=== PATIENT | female | born 1945 | race Caucasian/White ===

== ENCOUNTER 2017-12-10 11:28 | Emergency (ER) | payer OTHER ==
[2017-12-10 11:48] VITALS: BP 135/78; PULSE 75; TEMP 98.2; BMI 24.9
--- NOTE | 2017-12-10 12:11 | PDOC ---
History of Present Illness - General Chief Complaint: Pain, Acute Stated Complaint: ABD PAIN&DIARRHEA Time Seen by Provider: 12/10/17 12:11 - History of Present Illness Initial Comments: 12/10/17 12:32 Ms. Gunderson is a 72 yo female w/ pmh of HTN, HLD, GERD, and Hypothyroidism who presents for evalution of 4 day history of gas and diarrhea. She reports this started while on a plane here from [place] and that she has had intermittent symptoms over this time period. Ms. Gunderson has been using loperamide and pedialyte for symptomatic relief without much change in symptoms. The patient denies chest pain, shortness of breath, headache and dizziness. Denies fever, chills, nausea, vomit, and constipation. Denies dysuria, frequency , urgency and hematuria. Allergies: NKDA Past History - Past Medical History Allergies/Adverse Reactions: Allergies Allergy/AdvReac Type Severity Reaction Status Date / Time No Known Allergies Allergy Verified 12/10/17 11:39 Home Medications: Ambulatory Orders Ciprofloxacin HCl [Cipro] 500 mg PO BID #14 tablet 12/10/17 metroNIDAZOLE [Flagyl -] 500 mg PO TID #21 tablet 12/10/17 COPD: No Diabetes: (PRE DIABETIC) HTN: Yes Hypercholesterolemia: Yes Psychiatric Problems: Yes (DEPRESSION) Thyroid Disease: Yes (HYPO) - Surgical History Appendectomy: Yes Cardiac Surgery: Yes (CARDIAC CATH) - Suicide/Smoking/Psychosocial Hx Smoking History: Never smoked Review of Systems - Review of Systems Comments:: 12/10/17 15:06 GENERAL/CONSTITUTIONAL: No fever or chills. No weakness. HEAD, EYES, EARS, NOSE AND THROAT: No change in vision. No ear pain or discharge. No sore throat. CARDIOVASCULAR: No chest pain or shortness of breath RESPIRATORY: No cough, wheezing, or hemoptysis. GASTROINTESTINAL: +Diarrhea as described. No nausea, vomiting, or constipation. GENITOURINARY: No dysuria, frequency, or change in urination. MUSCULOSKELETAL: No joint or muscle swelling or pain. No neck or back pain. SKIN: No rash NEUROLOGIC: No headache, vertigo, loss of consciousness, or change in strength/ sensation. ENDOCRINE: No increased thirst. No abnormal weight change HEMATOLOGIC/LYMPHATIC: No anemia, easy bleeding, or history of blood clots. ALLERGIC/IMMUNOLOGIC: No hives or skin allergy. *Physical Exam - Vital Signs Last Vital Signs Temp Pulse Resp BP Pulse Ox 98.2 F 75 19 135/78 100 12/10/17 11:39 12/10/17 11:39 12/10/17 11:39 12/10/17 11:39 12/10/17 11:39 - Physical Exam Comments: 12/10/17 15:06 GENERAL: Awake, alert, and fully oriented, in no acute distress HEAD: No signs of trauma, normocephalic, atraumatic EYES: PERRLA, EOMI, sclera anicteric, conjunctiva clear ENT: Auricles normal inspection, hearing grossly normal, nares patent, oropharynx clear without exudates. Moist mucosa NECK: Normal ROM, supple, no lymphadenopathy, JVD, or masses LUNGS: No distress, speaks full sentences, clear to auscultation bilaterally HEART: Regular rate and rhythm, normal S1 and S2, no murmurs, rubs or gallops, peripheral pulses normal and equal bilaterally. ABDOMEN: Soft, nontender, normoactive bowel sounds. No guarding, no rebound. No masses EXTREMITIES: Normal inspection, Normal range of motion, no edema. No clubbing or cyanosis. NEUROLOGICAL: Cranial nerves II through XII grossly intact. Normal speech, normal gait, no focal sensorimotor deficits SKIN: Warm, Dry, normal turgor, no rashes or lesions noted. ED Treatment Course - LABORATORY CBC & Chemistry Diagram: 12/10/17 12:31 12/10/17 12:31 Medical Decision Making - Medical Decision Making 12/10/17 16:24 Ms. Gunderson is a 72 yo female w/ pmh as described who presents for evaluation of diarrhea. Labs as below significant for UTI. Abd/Pelvis CT revealed mild diverticulitis. Ciprofloxacin and Flagyl proscribed for treatment. CT also notable for bilateral hydronephrosis. Discussed all findings with patient who will follow-up when she gets back to [place] from vacation here in [place] later next wee. Laboratory Results - last 24 hr 12/10/17 12/10/17 12/10/17 12:31 12:31 13:00 WBC 4.4 RBC 3.81 Hgb 11.6 Hct 34.7 MCV 91.0 MCH 30.4 MCHC 33.4 RDW 14.2 Plt Count 289 MPV 7.0 L Absolute Neuts (auto) 2.9 Neutrophils % 66.9 Lymphocytes % 20.3 Monocytes % 10.4 H Eosinophils % 2.0 Basophils % 0.4 Nucleated RBC % 0 Sodium 134 L Potassium 4.1 Chloride 101 Carbon Dioxide 25 Anion Gap 8 BUN 12 Creatinine 0.6 Creat Clearance w eGFR > 60 Random Glucose 98 Calcium 8.1 L Total Bilirubin 0.3 AST 31 ALT 34 Alkaline Phosphatase 57 Total Protein 7.1 Albumin 3.8 Urine Color Yellow Urine Appearance Slcloudy Urine pH 5.0 Ur Specific [place] 1.016 Urine Protein Negative Urine Glucose (UA) Negative Urine Ketones Negative Urine Blood Negative Urine Nitrite Negative Urine Bilirubin Negative Urine Urobilinogen 2.0 H Ur Leukocyte Esterase 2+ H Urine WBC (Auto) 15 Urine RBC (Auto) 5 Ur Epithelial Cells Few Urine Mucus Rare *DC/Admit/Observation/Transfer Diagnosis at time of Disposition: Diverticulitis - Discharge Dispostion Disposition: HOME - Referrals - Patient Instructions Printed Discharge Instructions: DI for Diverticulosis Additional Instructions: Please take all proscribed antibiotics as written. 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 Return to ER if any increase in pain, fever, chills, or other concerning symptoms. - Post Discharge Activity
[2017-12-10 13:11] LABS: URINE APPEARANCE SLCLOUDY; URINE BILIRUBIN NEGATIVE (<2.0 mg/dL); URINE BLOOD NEGATIVE (NEGATIVE); URINE COLOR YELLOW; URINE GLUCOSE (UA) NEGATIVE (NEGATIVE); URINE KETONE NEGATIVE (NEGATIVE); URINE NITRITE NEGATIVE (NEGATIVE); URINE PROTEIN NEGATIVE (NEGATIVE)
[2017-12-10 13:12] LABS: URINE LEUK ESTERASE 2+ (NEGATIVE)
[2017-12-10 13:14] LABS: EPI CELLS FEW /HPF (FEW); URINE MUCUS RARE
--- NOTE | 2017-12-10 13:21 | PDOC ---
Attending Attestation - Resident Resident Name: Jobydee [email or web address] - ED Attending Attestation I have performed the following: I have examined & evaluated the patient, The case was reviewed & discussed with the resident, I agree w/resident's findings & plan, Exceptions are as noted - HPI HPI: 12/10/17 13:17 72-year-old female patient with history of hypertension, hyperlipidemia, prediabetes, thyroid disorder sent in from urgent care for further evaluation of nausea, vomiting, diarrhea and abdominal pain for 4 days. Patient is from [place] and was traveling for vacation here to [facility]. On the way back here, patient developed diffuse watery stools and nausea and vomiting. Denies fevers or chills. Denies bad foods or sick contacts. States that she had blood work performed yesterday urgent care which was reportedly negative. However, given her abdominal pain she was sent to the ER. - Physicial Exam PE: 12/10/17 13:18 GENERAL: Awake, alert, and fully oriented, in no acute distress. HEAD: No signs of trauma EYES: EOMI, sclera anicteric, conjunctiva clear ENT: Auricles normal inspection, hearing grossly normal, nares patent NECK: Normal ROM, supple ABDOMEN: Soft, TTP Left mid abdomen. No guarding, no rebound. No masses EXTREMITIES: Normal range of motion, no edema. No clubbing or cyanosis. No cords, erythema, or tenderness NEUROLOGICAL: Cranial nerves II through XII grossly intact. Normal speech, normal gait SKIN: Warm, Dry, normal turgor, no rashes or lesions noted. - Medical Decision Making 12/10/17 13:20 Vital Signs Temp Pulse Resp BP Pulse Ox 98.2 F 75 19 135/78 100 12/10/17 11:39 12/10/17 11:39 12/10/17 11:39 12/10/17 11:39 12/10/17 11:39 Patient overall is nontoxic appearing. Differential includes gastritis versus colitis. We'll obtain labs and a CAT scan the abdomen pelvis. If the workup is unremarkable, the patient can go home with supportive care. 12/10/17 16:27 CT scan demonstrates extensive sigmoid diverticulosis with concentric wall thickening probably secondary to chronic diverticular disease and less likely acute diverticular colitis. No pericolonic edema or fluid is seen. No abscess noted. Mild increase fluid contents seen within the colon consistent with history of diarrheal illness. Minimal to mild bilateral hydroureteronephrosis is noted. CBC, BMP 12/10/17 12:31 12/10/17 12:31 CMP Sodium 134 mmol/L (136-145) L 12/10/17 12:31 Potassium 4.1 mmol/L (3.5-5.1) 12/10/17 12:31 Chloride 101 mmol/L (98-107) 12/10/17 12:31 Carbon Dioxide 25 mmol/L (21-32) 12/10/17 12:31 Anion Gap 8 (8-16) 12/10/17 12:31 BUN 12 mg/dL (7-18) 12/10/17 12:31 Creatinine 0.6 mg/dL (0.55-1.02) 12/10/17 12:31 Creat Clearance w eGFR > 60 (>60) 12/10/17 12:31 Random Glucose 98 mg/dL (74-106) 12/10/17 12:31 Calcium 8.1 mg/dL (8.5-10.1) L 12/10/17 12:31 Total Bilirubin 0.3 mg/dL (0.2-1.0) 12/10/17 12:31 AST 31 U/L (15-37) 12/10/17 12:31 ALT 34 U/L (12-78) 12/10/17 12:31 Alkaline Phosphatase 57 U/L (45-117) 12/10/17 12:31 Total Protein 7.1 g/dl (6.4-8.2) 12/10/17 12:31 Albumin 3.8 g/dl (3.4-5.0) 12/10/17 12:31 Urine Test Results Urine Color Yellow 12/10/17 13:00 Urine Appearance Slcloudy 12/10/17 13:00 Urine pH 5.0 (5.0-8.0) 12/10/17 13:00 Ur Specific [place] 1.016 (1.001-1.035) 12/10/17 13:00 Urine Protein Negative (NEGATIVE) 12/10/17 13:00 Urine Glucose (UA) Negative (NEGATIVE) 12/10/17 13:00 Urine Ketones Negative (NEGATIVE) 12/10/17 13:00 Urine Blood Negative (NEGATIVE) 12/10/17 13:00 Urine Nitrite Negative (NEGATIVE) 12/10/17 13:00 Urine Bilirubin Negative (<2.0 mg/dL) 12/10/17 13:00 Ur Leukocyte Esterase 2+ (NEGATIVE) H 12/10/17 13:00 Ur Epithelial Cells Few /HPF (FEW) 12/10/17 13:00 Urine Mucus Rare 12/10/17 13:00 Results of the CAT scan discussed with the patient. We'll treat with one week worth of Cipro Floxin and Flagyl as patient has left-sided pain and with diarrhea. Though the CAT scan demonstrates probable chronic findings, we'll treat his acute at the moment. The patient does have a colonoscopy and endoscopy scheduled for next week. We advised the patient that she should take a copy of the CAT scan results of pertinent to her doctor. Patient is ready on a high-fiber diet has been attempting to control her diverticulosis. Also notable is the hydroureteronephrosis. Give referral to urologist for outpatient follow-up. Patient verbalized understanding and agrees with plan.
[2017-12-10 13:33] LABS: BASO % 0.4 % (0-2.0); HEMATOCRIT 34.7 % (32.4-45.2); HEMOGLOBIN 11.6 GM/dL (10.7-15.3); LYMPH % 20.3 % (8-40); MCH 30.4 pg (25.7-33.7); MCHC 33.4 g/dl (32.0-36.0); MONO % 10.4 % (3.8-10.2); NEUT % 66.9 % (42.8-82.8); PLATELET COUNT 289 K/MM3 (134-434); RBC 3.81 M/mm3 (3.60-5.2); RDW 14.2 % (11.6-15.6); WHITE BLOOD COUNT 4.4 K/mm3 (4.0-10.0)
[2017-12-10] MEDS ORDERED: SODIUM CHLORIDE 1,000 ML IV STA (13:38)
[2017-12-10 13:51] LABS: ALBUMIN 3.8 g/dl (3.4-5.0); ANION GAP 8 (8-16); BLOOD UREA NITROGEN 12 mg/dL (7-18); CALCIUM 8.1 mg/dL (8.5-10.1); CHLORIDE 101 mmol/L (98-107); CO2 25 mmol/L (21-32); CREATININE 0.6 mg/dL (0.55-1.02); GLUCOSE,RANDOM 98 mg/dL (74-106); POTASSIUM 4.1 mmol/L (3.5-5.1); SGOT/AST 31 U/L (15-37); SGPT/ALT 34 U/L (12-78); SODIUM 134 mmol/L (136-145)
[2017-12-10 13:54] LABS: ALK PHOS 57 U/L (45-117); BILIRUBIN,TOTAL 0.3 mg/dL (0.2-1.0); TOT PROT 7.1 g/dl (6.4-8.2)
== END 2017-12-10 16:39 | disposition home or self-care (01) ==
LOC: JER 11:28
PROC: 3E0337Z Introduction of Electrolytic and Water Balance Substance into Peripheral Vein, Percutaneous Approach (ICD-10-PCS; principal; 2017-12-10)
DX: K57.92 Diverticulitis of intestine, part unspecified, without perforation or abscess without bleeding (principal); I25.10 Atherosclerotic heart disease of native coronary artery without angina pectoris; I10 Essential (primary) hypertension; Z95.5 Presence of coronary angioplasty implant and graft; K21.9 Gastro-esophageal reflux disease without esophagitis; F32.9 Major depressive disorder, single episode, unspecified; R73.03 Prediabetes
CPT/HCPCS: 36415; 74177-TC; 80053; 81003; 81015; 85025; 87086; 96360; 99283-25; J7030